=== PATIENT | male | born 1950 | race Caucasian/White ===

== ENCOUNTER → 2025-01-20 11:24 | Outpatient (CLI) | payer MEDICARE, OTHER, SELFPAY ==
--- NOTE | 2025-01-20 11:29 | DI.CT.S_ITS ---
PROCEDURE: CT HEAD/BRAIN WO CON INDICATIONS: HEMORRAGE TECHNIQUE: Noncontrast 4.5 mm thick angled axial sections acquired from the foramen magnum to the vertex, with coronal and sagittal reformats. For radiation dose reduction, the following was used: automated exposure control, adjustment of mA and/or kV according to patient size. COMPARISON: Outside Facility, CT, CT HEAD/BRAIN WO CON, 12/30/2024, 2:59. Outside Facility, CT, CT HEAD/BRAIN WO CON, 07/29/2023, 8:13. FINDINGS: Image quality: Diagnostic. Please note that the exam was initially placed on hold prior to interpretation pending the arrival of outside prior CTs and was submitted for interpretation on 01/23/2025. Brain and CSF spaces: Postsurgical changes are seen from evaluation of the previously seen left cerebral convexity subdural hematoma. There is a residual collection of fluid and gas along the surgical site at the left frontal convexity. This collection measures up to 14 mm in thickness (series 4, image 20). Additional small amount of low- density extra-axial fluid is seen along the anterior frontal convexity measuring up to 8 mm in thickness (2/14 and along the parietal convexity measuring up to 8 mm (4/36). When compared to the prior CT, there is decreased mass effect on the left cerebral hemisphere with decreased midline shift no measuring approximately the 3 mm at the anterior septum pellucidum. No acute intraparenchymal hemorrhage or new hyperdense extra-axial hemorrhage is seen. Chronic generalized cerebral and cerebellar parenchymal volume loss is noted as well as chronic microvascular ischemic changes. Bilateral globus pallidus calcifications are present. Basilar cisterns are patent. Skull and face: Postsurgical changes from left frontal craniotomy. Small right frontal and right parietal lenard hole cranial defects. Sinuses: Visualized sinuses and mastoids are clear. IMPRESSION: Postsurgical changes are seen from interval left frontal craniotomy. Extra- axial postsurgical collection of fluid and gas is seen adjacent to the surgical site. Additional low-density fluid is seen along the left frontal convexity that may be postsurgical or related to residual chronic subdural hematoma. Decreased mass effect on the left cerebral convexity when compared to the CT from 12/30/2024, with mild residual rightward midline shift measuring up to 3 mm. Basilar cisterns are patent. Approved by: Po Saul M.D. on 01/23/2025 at 14:07
== END ==
DX: I62.9 Nontraumatic intracranial hemorrhage, unspecified (principal); Z98.890 Other specified postprocedural states
CPT/HCPCS: 70450

== ENCOUNTER → 2025-03-24 12:31 | Outpatient (CLI) | payer MEDICARE, OTHER, SELFPAY ==
--- NOTE | 2025-03-24 12:33 | DI.CT.S_ITS ---
PROCEDURE: CT HEAD/BRAIN WO CON INDICATIONS: SDH TECHNIQUE: Noncontrast 4.5 mm thick angled axial sections acquired from the foramen magnum to the vertex, with coronal and sagittal reformats. For radiation dose reduction, the following was used: automated exposure control, adjustment of mA and/or kV according to patient size. COMPARISON: [facility], CT, CT HEAD/BRAIN WO CON, 01/20/2025, 12:00. FINDINGS: Image quality: Diagnostic. CSF spaces: Basal cisterns are patent. No extra-axial fluid collections. The ventricles are symmetric in size and shape. Brain: Left subdural hematoma which has decreased in size and measuring approximately 8 mm compared to 1.4 cm on prior exam. No appearance of new superimposed hemorrhage. There is cerebral volume loss, with resultant ventricular and sulcal prominence. There are periventricular and deep white matter chronic small vessel ischemic changes. There is intracranial internal carotid artery atherosclerosis. Senescent basal ganglia calcifications. Skull and face: Left craniotomy changes. Sinuses: Visualized sinuses and mastoids are clear. IMPRESSION: Interval decrease in size of left subdural hematoma without evidence of superimposed acute hemorrhage. Dictated by: Amelia Russell M.D. on 03/24/2025 at 20:49 Approved by: Amelia Russell M.D. on 03/24/2025 at 20:50
== END ==
LOC: CT 12:32
PROVIDERS: Referring Provider Physician Assistant; Visit Provider Physician Assistant
DX: S06.5XAA Traumatic subdural hemorrhage with loss of consciousness status unknown, initial encounter (principal)
CPT/HCPCS: 70450